=== PATIENT | male | born 1955 | race Caucasian/White ===

== ENCOUNTER 2017-09-07 08:46 | Day surgery (SDC) | payer OTHER ==
[~2017-09-07] VITALS: Ht 188 cm; Wt 111.0 kg
[~2017-09-07 08:46] MED LIST: ACETAMINOPHEN 500 MG TABLET PO ONE; ACYC-114 PO; FENO134C PO; GABAPENTIN 300 MG CAPSULE PO ONE; LOSA1TAB19 PO; LOSA1TAB22 PO; LOVA40TA2 PO; METF500T4 PO; METO25TA35 PO
[2017-09-07] MEDS ORDERED: LACTATED RINGERS 1,000 ML IV SCH (09:02)
[2017-09-07] MEDS ORDERED: LIDOCAINE 1%, 50ML ONE (09:14)
[2017-09-07] MEDS ORDERED: BUPIVACAINE/PF 0.5% ONE ×2 (09:15→15:05)
[2017-09-07] MEDS ORDERED: EPINEPHRINE 1 MG/ML, 1ML ONE (09:15)
[2017-09-07 09:35] VITALS: BP 137/89
[2017-09-07] MEDS ORDERED: LIDOCAINE-MPF 2% ,5ML ONE (09:59)
[2017-09-07] MEDS ORDERED: PROPOFOL 10 MG/ML, 20ML ONE (09:59)
[2017-09-07] MEDS ORDERED: FENTANYL PF 100 MCG/2ML ONE (09:59)
[2017-09-07] MEDS ORDERED: CEFAZOLIN 1,000 MG ONE (09:59)
[2017-09-07] MEDS ORDERED: MIDAZOLAM 1 MG/ML, 2ML ONE (09:59)
[2017-09-07] MEDS ORDERED: ONDANSETRON 2MG/ML, 2ML ONE (09:59)
[2017-09-07] MEDS ORDERED: DEXAMETHASONE 4 MG/ML, 1ML ONE (09:59)
[2017-09-07] MEDS ORDERED: ONDANSETRON 2MG/ML, 2ML IVPush PRN (11:30)
[2017-09-07] MEDS ORDERED: PROMETHAZINE 25 MG/ML, 1ML IV PRN (11:30)
[2017-09-07] MEDS ORDERED: GABAPENTIN 300 MG CAPSULE PO ONE (11:30)
[2017-09-07] MEDS ORDERED: hydrALAzine 20 MG/ML, 1ML IV PRN (11:30)
[2017-09-07] MEDS ORDERED: MEPERIDINE/PF 25MG/0.5ML IVPush PRN (11:30)
[2017-09-07] MEDS ORDERED: MIDAZOLAM 1 MG/ML, 2ML IV PRN (11:30)
[2017-09-07] MEDS ORDERED: LABETALOL 5MG/ML, 20ML IV PRN (11:30)
[2017-09-07] MEDS ORDERED: PROMETHAZINE 12.5 MG SUPP PR PRN (11:30)
[2017-09-07] MEDS ORDERED: OXYcodone 5 MG/5 ML ORAL.SOL UDC PO PRN (11:30)
[2017-09-07] MEDS ORDERED: HYDROmorphone 1 MG/ML, 1ML IV PRN (11:30)
[2017-09-07] MEDS ORDERED: ACETAMINOPHEN 500 MG TABLET PO ONE (11:30)
[2017-09-07] MEDS ORDERED: DIAZEPAM 5 MG/ML, 2ML IVPush PRN (11:30)
[2017-09-07] MEDS ORDERED: FENTANYL PF 100 MCG/2ML IV PRN (11:30)
[2017-09-07] MEDS ORDERED: ALBUTEROL/IPRATROPIUM 2.5MG/0.5MG, 3 ML NPPB PRN (11:30)
[2017-09-07] MEDS ORDERED: OXYcodone 5 MG/5 ML ORAL.SOL UDC ONE ×2 (13:18)
[2017-09-07] MEDS ORDERED: KETOROLAC 30 MG/1 ML ONE (13:36)
[2017-09-07] MEDS ORDERED: KETOROLAC 30 MG/1 ML IVPush ONE (14:00)
[2017-09-07] MEDS ORDERED: methylPREDNISolone SOD SUCC 40 MG/ML ONE (15:06)
[2017-09-07] MEDS ORDERED: METOPROLOL TARTRATE 25 MG TABLET PO SCH (21:00)
[2017-09-07] MEDS ORDERED: metFORMIN 500 MG TABLET PO SCH (21:00)
[2017-09-07] MEDS ORDERED: LOVASTATIN 40 MG TABLET PO SCH (21:00)
[2017-09-08] MEDS ORDERED: ACYCLOVIR 400 MG TABLET PO SCH (09:00)
[2017-09-08] MEDS ORDERED: TEMPLATE NON-FORMULARY MED. (Losartan/Hydrochlorothiazide** (Losartan-Hctz 100-25 Mg Tab PO SCH (09:00)
[2017-09-08] MEDS ORDERED: FENOFIBRATE MICRONIZED 134 MG PO SCH (09:00)
== END 2017-09-07 15:55 | disposition home or self-care (01) ==
LOC: OUT 08:46
PROVIDERS: ATTEND Orthopaedic Surgery
DX: S83.231A Complex tear of medial meniscus, current injury, right knee, initial encounter (principal); M70.22 Olecranon bursitis, left elbow; I10 Essential (primary) hypertension; E78.5 Hyperlipidemia, unspecified; X58.XXXA Exposure to other specified factors, initial encounter; Y93.89 Activity, other specified; Y92.89 Other specified places as the place of occurrence of the external cause; Y99.8 Other external cause status; Z87.891 Personal history of nicotine dependence
CPT/HCPCS: 20610; 29881; 82962; 88305; 88311; 93005; J0171; J0690; J1100; J1885; J2250; J2405; J2704; J2920; J3010; J3490